=== PATIENT | male | born 1965 | race Hispanic/Latino ===

== ENCOUNTER 2016-09-09 14:16 | Emergency (ER) | payer SELFPAY ==
[~2016-09-09] VITALS: Ht 177.8 cm; Wt 83.6 kg
[2016-09-09] MEDS ORDERED: NS 1,000 ML IV SCH (14:27)
[2016-09-09] MEDS ORDERED: ONDANSETRON 4MG/2ML VIAL (J2405) IV ONE (14:30)
[2016-09-09] MEDS: METOPROLOL 5 MG/5 ML VIAL IV SCH ×3 (14:47→15:13)
[2016-09-09] MEDS: MORPHINE 4 MG/ML 1ML SYRINGE IV PRN ×2 (14:48→15:56)
[2016-09-09] MEDS ORDERED: ACETAMINOPHEN 325 MG TAB PO ONE (15:00)
[2016-09-09] MEDS ORDERED: METOPROLOL TART 50 MG TAB PO ONE (15:00)
--- NOTE | 2016-09-09 15:01 | REP ---
Chest one-view HISTORY: Chest pain Comparison: None The lungs are clear. The heart is normal in size. The pulmonary vasculature is normal in appearance. Impression: No acute disease. Signed by Marcos Bradshaw MD 09/09/2016 02:52 P
[2016-09-09 15:05] LABS: INR 1.22
[2016-09-09 15:13] VITALS: BP 188/106
[2016-09-09 15:18] LABS: ALBUMIN 2.7 GM/DL (3.2-5.2); ALKALINE PHOSPHATASE 129 U/L (45-117); ALT/SGPT 92 U/L (12-78); ANION GAP 6 MEQ/L (8-16); AST/SGOT 134 U/L (15-37); BILIRUBIN,DIRECT 0.5 MG/DL (0.0-0.2); BILIRUBIN,TOTAL 0.9 MG/DL (0.2-1.0); BLOOD UREA NITROGEN 12 MG/DL (7-18); CALCIUM LEVEL 8.1 MG/DL (8.5-10.1); CARBON DIOXIDE LEVEL 25 MEQ/L (21-32); CHLORIDE LEVEL 108 MEQ/L (98-107); CREATININE FOR GFR 0.91 MG/DL (0.70-1.30); GLOMERULAR FILTRATION RATE > 60.0 (>56); GLUCOSE, FASTING 111 MG/DL (70-105); POTASSIUM SERUM 3.7 MEQ/L (3.5-5.1); SODIUM LEVEL 139 MEQ/L (136-145); TOTAL PROTEIN 7.2 GM/DL (6.4-8.2)
[2016-09-09 15:35] LABS: BASO % 0.7 % (0.0-1.0); EOS # 0.1 K/mm3 (0.0-0.50); EOS % 1.3 % (0.0-3.0); LARGE UNSTAINED CELL # 0.1 K/mm3 (0.0-0.4); LARGE UNSTAINED CELL % 1.6 % (0.0-4.0); LYMPH # 0.7 K/mm3 (1.5-4.5); LYMPH % 11.8 % (24.0-44.0); MEAN CORPUSCULAR HEMOGLOBIN 34.6 pg (27.0-33.0); MEAN CORPUSCULAR HGB CONC 34.2 g/dl (32.0-36.5); MEAN CORPUSCULAR VOLUME 101.2 fl (80.0-96.0); MONO # 0.4 K/mm3 (0.0-0.8); MONO % 7.8 % (0.0-5.0); NEUTROPHILS % 76.9 % (36.0-66.0); RED CELL DISTRIBUTION WIDTH 14.4 % (11.5-14.5); WHITE BLOOD COUNT 5.2 K/mm3 (4.0-10.0)
[2016-09-09 16:16] LABS: PLATELET COUNT, AUTOMATED 78 k/mm3 (150-450)
[2016-09-09] MEDS ORDERED: IBUP-1022 PO (16:20)
[2016-09-09] MEDS ORDERED: LISI20TA PO (16:20)
[2016-09-09 16:44] VITALS: BP 134/79
--- NOTE | 2016-09-09 22:00 | ECGEPIP ---
Stationary ECG Study [facility] - ED Test Date: 2016-09-09 Pat Name: JOSEE EPSTEIN Department: Room: - Gender: M [employer]: low : 1965 Requested By: CHRISTEL HURLEY Order Number: [id number] Reading MD: Lourdes Carty Measurements Intervals [place] Rate: 95 P: 58 AK: 152 QRS: 22 QRSD: 99 T: 24 QT: 360 QTc: 453 Interpretive Statements SINUS RHYTHM DELAYED R PROGRESSION NSTTW ABNORMALITY NO PRIOR FOR COMPARISON Electronically Signed On 09-09-2016 22:00:04 EDT by Lourdes Carty
== END 2016-09-09 16:57 | disposition home or self-care (01) ==
LOC: EDBD 14:16 → M ED 14:16
DX: I10 Essential (primary) hypertension (principal); K75.9 Inflammatory liver disease, unspecified; R00.0 Tachycardia, unspecified; I25.2 Old myocardial infarction; R06.02 Shortness of breath; R50.9 Fever, unspecified; F17.210 Nicotine dependence, cigarettes, uncomplicated; Z88.0 Allergy status to penicillin